=== PATIENT | male | born 1990 | race Caucasian/White ===

== ENCOUNTER 2021-08-25 11:18 | Emergency (ER) | payer MEDICAID, SELFPAY ==
[2021-08-25 11:19] VITALS: BP 175/103; PULSE 128; RESP 18; TEMP 37.4; O2SAT 98; BMI 24.3
[2021-08-25] MEDS: 0.9% Normal Saline 1,000 ML 1000 ML IV (12:01)
[2021-08-25 12:12] LABS: Squamous Epithelial Cells - UA 0 SEEN /hpf (0-5)
[2021-08-25 12:15] LABS: Absolute Lymphocyte Count 1.66 X10^3/uL (0.83-4.51); Absolute Neutrophil Count 13.8 X10^3/uL (2.0-7.7); Basophil# 0.08 X10^3/uL; Basophil% 0.5 % (0-1); Color, Urine Yellow (Yellow); Eosinophil# 0.01 X10^3/uL; Eosinophils% 0.1 % (0-5); Glucose, Dipstick Normal (Normal); Hematocrit 46.8 % (40-54); Hemoglobin 16.5 g/dL (13.0-16.5); Ketone-Dipstick 15 mg/dl (Negative); Leukocyte Esterase-Dipstick 100 /ul (Negative); Lymphocyte # 1.66 X10^3/ul (0.83-4.51); Mean Corp Hgb Conc 35.3 g/dL (32-36); Mean Corpuscular Hgb 33.4 pg (27.0-32.0); Mean Corpuscular Volume 94.7 fL (80-94); Mean Platelet Vol. 9.3 fl (6.2-12.0); Monocyte% 6.6 % (0-10); NRBC Flagged by Analyzer 0 % (0-5); Neutrophil # 13.75 X10^3/uL (2.7-7.7); Neutrophil % 82.3 % (47-70); Nitrite-Dipstick Negative (Negative); Occult Blood-Urine 50 /ul (Negative); Platelet Count 328 K/mm3 (150-450); Protein-Dipstick 30 mg/dl (Negative); RBC Distribution Width CV 13.2 % (11.6-14.6); RBC Distribution Width SD 46.2 fl (35.1-43.9); Red Blood Count 4.94 M/mm3 (4.6-6.2); Specific Gravity, Urine 1.025 (1.002-1.030); Urine Clarity Sl. Cloudy (Clear); Urine Urobilinogen 4 mg/dl (Normal); White Blood Count 16.7 K/mm3 (4.4-11.0)
[2021-08-25 12:17] LABS: Urine Bilirubin Dipstick 1 mg/dL (Negative)
--- NOTE | 2021-08-25 12:18 | CT_ITS ---
STUDY: CT ABDOMEN AND PELVIS WITH CONTRAST REASON FOR EXAM: Male, 30 years old. abdominal pain and leukocytosis RADIATION DOSAGE (If Supplied By Facility): CTDIvol = ( 9.64 ) mGy, DLP = ( 612.05 ) mGycm TECHNIQUE: Transaxial images were obtained from the dome of the diaphragm to the symphysis pubis without oral contrast. IV 100mL Isovue-300 was administered. Sagittal and coronal images were reconstructed. Individualized dose optimization techniques were used for this CT. COMPARISON: None. FINDINGS: The visualized lung bases are unremarkable. The visualized portions of the heart are within normal limits. Normal liver. Normal gallbladder and extrahepatic biliary system. Normal spleen. Normal pancreas. Normal bilateral adrenal glands. Normal right kidney. Normal left kidney. Normal visualized stomach. Normal small intestine. Normal colon. There are surgical clips in the region of the appendix consistent with a prior appendectomy. Normal abdominal aorta. Normal inferior vena cava. Normal retroperitoneum. Normal urinary bladder. Normal abdominal wall. Normal osseous structures. CT/Abdomen/Pelvis W IV Cont ONLY IMPRESSION: Normal enhanced CT of the abdomen and pelvis. Electronically Signed: Kirk Melendez MD at 13:12 EDT ,
[2021-08-25 12:22] LABS: Bacteria 1+ /hpf (None Seen); Mucous, Urine 2+ /hpf (<or=2+); Red Blood Cells-Urine 5-10 SEEN /hpf (0-5); White Blood Cells 0-5 SEEN /hpf (0-5)
[2021-08-25 12:37] LABS: AST(SGOT) 32 U/L (15-37); Alanine Aminotransfer ALT/SGPT 34 U/L (16-61); Alkaline Phosphatase 95 U/L (45-117); Anion Gap 7 (5-15); BUN 6 mg/dL (7-18); BUN/Creat Ratio 5.7 RATIO (10-20); Calcium,Total 9.8 mg/dL (8.5-10.1); Chloride 102 mmol/L (98-107); Creatinine, Serum 1.06 mg/dL (0.70-1.30); EST Glomerular Filtration Rate 87 mL/min (>60); Est Glom Filt Rate - Afr Amer 105 mL/min (>60); Globulin 4.1 g/dL (2.2-4.2); Glucose 117 mg/dL (74-106); Lipase 42 U/L (73-393); Potassium 3.7 mmol/L (3.5-5.1); Protein, Total 8.1 g/dL (6.4-8.2); Sodium Level 135 mmol/L (136-145)
--- NOTE | 2021-08-25 14:10 | EDS_ITS ---
HPI History of Present Illness Chief Complaint: General Illness Informant: patient and spouse/S.O. Narrative Narrative: 30-year-old male arriving to the emergency department with a chief complaint of abdominal pain and vomiting. Patient states that about 3 months ago he underwent an appendectomy. Since that time he has had pain in the left lower quadrant of his abdomen. He notes vomiting most mornings states its been difficult for him to keep anything down the past 2 days. He was at [facility] emergency department this morning where he was diagnosed with a dental infection and placed on clindamycin. He has not seen his primary care doctor for over a y ear. He has no follow-up for this abdominal pain. No reported fevers. PFSH PFSH Home Medications clonazepam 1 mg PO DAILY 08/25/21 [History Last Taken Unknown] lamotrigine [Lamictal] 100 mg PO DAILY 08/25/21 [History Last Taken Unknown] ondansetron 4 mg PO Q6H PRN PRN #15 tab 08/25/21 [Rx Last Taken Unknown] oxycodone-acetaminophen 1 tab PO Q6H PRN PRN 3 Days #12 tablet 08/25/21 [Rx Last Taken Unknown] quetiapine [Seroquel] 200 mg PO QHS 08/25/21 [History Last Taken Unknown] Allergy/AdvReac Type Severity Reaction Status Date / Time Sulfa (Sulfonamide Allergy Hives Verified 08/25/21 11:22 Antibiotics) Surgical History History of appendectomy Social History (Updated 08/25/21 @ 14:[address] Naren Wall DO) current gender identity: male Smoking Status: Current every day smoker tobacco type: cigarettes ROS ROS ED Constitutional Constitutional ED: Denies chills, fever(s) or weight loss Eyes Eyes: Denies change in vision or diplopia ENT ENT ED: Reports other Details: Dental abscess ; Denies ear pain, rhinorrhea or sore throat Cardiovascular Cardiovascular: Denies chest pain, orthopnea, palpitations or racing heartbeat Respiratory/Chest Respiratory/Chest: Denies cough, dyspnea or orthopnea Gastrointestinal Gastrointestinal: Reports abdominal pain, nausea and vomiting; Denies diarrhea Genitourinary Genitourinary ED: Denies dysuria, hematuria or urinary frequency Musculoskeletal Musculoskeletal: Denies arthralgias or myalgias Integumentary Denies abscess or rash Neurologic Neurologic: Denies headache(s) or weakness Psychiatric Psychiatric: Denies anxiety, depression, suicidal ideation or suicidal thoughts Endocrine Endocrinology: Denies polydipsia, polyphagia or polyuria Allergic/Immunologic Allergic/Immunologic ED: Denies mouth swelling, tongue swelling or urticaria EXAM Physical Exam Const Vital Signs: 08/25/21 11:19 08/25/21 11:28 Temperature 99.4 F H Temperature Source Temporal Pulse Rate 128 H Respiratory Rate 18 Respiratory Effort Normal Non-Labored Respiratory Pattern Normal Blood Pressure 175/103 H Blood Pressure Mean 127 Pulse Ox 98 Oxygen Delivery Method Room Air Positive well nourished and well developed General Appearance ED: well developed HEENT Reports normocephalic, head/scalp atraumatic, TM's clear and moist mucous membranes HEENT Narrative: There is focal swelling along the right gumline and mandible. This is consistent with dental abscess. There is no trismus. Floor the mouth is soft. Nothing drainable at this time there is no overlying erythema Negative for trauma Tympanic Membrane ED: Yes TM's clear Eyes PERRL and EOMs intact bilaterally Neck no lymphadenopathy, supple and no JVD Resp normal respiratory effort and clear to auscultation bilaterally Cardio regular rate, regular rhythm and no murmurs GI Palpation: soft and tender LLQ Back/Spine no CVA tenderness and normal ROM Extremity normal to inspection General Extremety ED: Negative for edema General Extremity: Negative for edema Neuro oriented x3 and CN's II-XII intact bilaterally Sensorium / Orientation: alert Motor Exam: strength 5/5 throughout Psych mental status grossly normal Mood & Affect: Negative for depressed or tearful Skin no rashes or lesions noted and no wounds MDM MDM MDM Narrative Medical decision making narrative: White count of 16.7. Glucose at 117. Urinalysis 5-10 red cells 1+ bacteria but no overt infection. CT abdomen pelvis did not demonstrate anything obvious to explain his symptoms. The patient received a liter of IV fluids. We will write for him to have some pain medicine for his dental abscess and I can also write for some Zofran for the nausea and vomiting. Encouraged the patient to follow-up with gastroenterology. At this point I do not see an obvious emergent cause to his pain. Lab Data Attestation: I reviewed the patient's lab results. Labs: Laboratory Results - last 24 hr 08/25/21 08/25/21 08/25/21 12:00 12:00 12:00 WBC 16.7 H RBC 4.94 Hgb 16.5 Hct 46.8 MCV 94.7 H MCH 33.4 H MCHC 35.3 RDW Std Deviation 46.2 H RDW Coeff of Roger 13.2 Plt Count 328 MPV 9.3 Immature Gran % (Auto) 0.500 Neut % (Auto) 82.3 H Lymph % (Auto) 10.0 L [place] % (Auto) 6.6 Eos % (Auto) 0.1 Baso % (Auto) 0.5 Absolute Neuts (auto) 13.8 H Absolute Lymphs (auto) 1.66 Nucleated RBC % 0 Sodium 135 L Potassium 3.7 Chloride 102 Carbon Dioxide 26.0 Anion Gap 7 BUN 6 L Creatinine 1.06 Estim Creat Clear Calc 101.90 Est GFR (MDRD) Af Amer 105 Est GFR (MDRD) Non-Af 87 BUN/Creatinine Ratio 5.7 L Glucose 117 H Calcium 9.8 Total Bilirubin 0.30 AST 32 ALT 34 Alkaline Phosphatase 95 Total Protein 8.1 Albumin 4.0 Globulin 4.1 Albumin/Globulin Ratio 1.0 Lipase 42 L Urine Color Yellow Urine Clarity Sl. Cloudy Urine pH 6.0 Ur Specific [place] 1.025 Urine Protein 30 H Urine Glucose (UA) Normal Urine Ketones 15 H Urine Occult Blood 50 H Urine Nitrite Negative Urine Bilirubin 1 H Urine Urobilinogen 4 H Ur Leukocyte Esterase 100 H Urine RBC 5-10 SEEN Urine WBC 0-5 SEEN Ur Squamous Epith Cells 0 SEEN Urine Bacteria 1+ Urine Mucus 2+ Radiography Diagnostic Testing: Clinical Impression(s) from Imaging Studies Abdomen/Pelvis CT 08/25/21 12:18 IMPRESSION: Normal enhanced CT of the abdomen and pelvis. Electronically Signed: Kirk Melendez MD at 13:12 EDT , Discharge Plan Triage Chief Complaint: General Illness ED Provider: Naren Wall Dx/Rx/DC Orders Clinical Impression: Dental abscess, Abdominal pain, Vomiting Instructions: Abdominal Pain, ED Dental Abscess Prescriptions: New oxycodone-acetaminophen [oxycodone-acetaminophen] 1 TABLET tablet 1 tab PO Q6H PRN PRN (Reason: Pain) 3 Days Qty: 12 RF: 0 ondansetron [ondansetron] 4 MG tablet 4 mg PO Q6H PRN PRN (Reason: Nausea) Qty: 15 RF: 0 No Action quetiapine [Seroquel] 200 mg Tablet 200 mg PO QHS RF: 0 clonazepam 1 mg Tablet 1 mg PO DAILY RF: 0 lamotrigine [Lamictal] 100 mg Tablet 100 mg PO DAILY RF: 0 Primary Care Provider: Care Physician,No Primary Referrals: Friend,Tyrese, DO [STAFF PHYSICIAN] - As soon as possible (For gastroenterology) Care Physician,No Primary [Primary Care Provider] - Disposition Disposition: Home, Self Care
[2021-08-25 14:14] VITALS: RESP 18
== END 2021-08-25 14:15 | disposition home or self-care (01) ==
PROVIDERS: Emergency Provider Emergency Medicine; Visit Provider Emergency Medicine
DX: K04.7 Periapical abscess without sinus (principal); F17.210 Nicotine dependence, cigarettes, uncomplicated; R10.9 Unspecified abdominal pain; R11.2 Nausea with vomiting, unspecified
CPT/HCPCS: 74177; 80053; 81001; 83690; 85025; 96360; 96361; 99283; J7030; Q9967; A4216